=== PATIENT | female | born 2005 | race Caucasian/White ===

== ENCOUNTER → 2025-01-04 | Outpatient (CLI) | payer BC, SELFPAY ==
--- NOTE | 2025-01-04 14:43 | NEURO_ITS ---
NCS and/or EMG Patient Report Ordering Doctor: Sakshi Beltran DATE OF SERVICE: 01/04/25 Shellie presents for electrodiagnostic testing of the right lower limb. She reports pain primarily burning in nature in the medial aspect of the knee. She does admit to intermittent lower back pain. Electrodiagnostic findings: Right peroneal motor nerve demonstrates normal distal latency, amplitude and conduction velocity. Right tibial motor response within normal limits. Borderline prolonged right sural latency. Normal right superficial peroneal response. H?reflex normal bilaterally. Normal right tibial and right peroneal F?wave. Needle EMG testing was performed in the right lower limb. 1+ fibrillations noted in the left semitendinosis, left peroneus longus and left lower lumbar paraspinals. Decreased recruitment pattern in the left semitendinosis. 1+ fibrillations and positive sharp waves noted in the lef t vastus medialis. Motor units of normal amplitude and duration. Electrodiagnostic impression: This is an abnormal study. 1 Electrodiagnostic findings suggestive of an acute right L4, L5 radiculopa thy. Recommend correlation with lumbar spine imaging. 2. No electrodiagnostic evidence is noted for peripheral neuropathy. Multi Select Codes Neurology Neurology Interp Codes: 81929-03 Musc test done w/n test comp (interp) and 77041-66 Nrv cndj tst 5-6 studies (interp)
== END | disposition home or self-care (01) ==
DX: R20.2 Paresthesia of skin (principal)
CPT/HCPCS: 95886; 95909